=== PATIENT | female | born 1955 | race Caucasian/White ===

== ENCOUNTER 2019-03-07 18:14 | Emergency (ER) | payer OTHER ==
[~2019-03-07] VITALS: Ht 157.5 cm; Wt 88.0 kg
[2019-03-07 18:30] VITALS: Ht 157.5 cm; Wt 88.0 kg
[2019-03-07 20:32] LABS: BASOPHIL % 0.6 % (0-2); PLATELET COUNT 214 x10^3mcL (130-400); RED CELL DISTRIBUTION WIDTH 12.6 % (11.5-14.5)
[2019-03-07 20:40] LABS: CALCIUM 9.1 mg/dL (8.5-10.1); POTASSIUM SERUM 3.1 mmol/L (3.5-5.1)
[2019-03-07 20:44] LABS: BILIRUBIN TOTAL 1.1 mg/dL (0.20-1.00); MAGNESIUM 2.2 mg/dL (1.8-2.4); TOTAL PROTEIN, SERUM 8.1 g/dL (6.4-8.2)
[2019-03-07 22:23] VITALS: BP 134/69
== END 2019-03-07 22:23 | disposition home or self-care (01) ==
LOC: ED 18:14
PROVIDERS: Emergency Medicine
DX: E86.0 Dehydration (principal); E87.6 Hypokalemia; R42 Dizziness and giddiness; I10 Essential (primary) hypertension; E11.9 Type 2 diabetes mellitus without complications; E78.00 Pure hypercholesterolemia, unspecified; Z88.5 Allergy status to narcotic agent
CPT/HCPCS: 36415; Q0092

== ENCOUNTER 2020-06-09 11:44 | Emergency (ER) | payer OTHER ==
[~2020-06-09] VITALS: Ht 157.5 cm; Wt 88.9 kg
[2020-06-09 11:52] VITALS: Ht 157.5 cm; Wt 88.9 kg
[2020-06-09 12:21] LABS: BASOPHIL % 0.7 % (0.2-1.3); PLATELET COUNT 215 x10^3mcL (179-408); RED CELL DISTRIBUTION WIDTH 12.8 % (12.3-17.7)
[2020-06-09 12:29] LABS: CALCIUM 9.3 mg/dL (8.5-10.1); CARBON DIOXIDE 30.7 mmol/L (21-32); CHLORIDE SERUM 102 mmol/L (98-107); CREATININE SERUM 0.9 mg/dL (0.6-1.0); GFR1 > 60 mL/min; GLUCOSE SERUM 101 mg/dL (74-106); POTASSIUM SERUM 3.9 mmol/L (3.5-5.1); SODIUM SERUM 139 mmol/L (136-145)
[2020-06-09 12:34] LABS: ALBUMIN 3.8 g/dL (3.4-5.0); ALKALINE PHOSPHATASE 61 U/L (46-116); ALT/SGPT 55 U/L (14-59); AST/SGOT 22 U/L (15-37); BILIRUBIN TOTAL 0.7 mg/dL (0.20-1.00); TOTAL PROTEIN, SERUM 7.5 g/dL (6.4-8.2)
[2020-06-09 12:43] LABS: T3 TOTAL 1.29 ng/mL
[2020-06-09 13:05] LABS: FREE T4 1.09 ng/dL (0.76-1.46)
[2020-06-09 13:57] VITALS: BP 122/81
== END 2020-06-09 13:57 | disposition home or self-care (01) ==
LOC: ED 11:44
PROVIDERS: Emergency Medicine
DX: F43.9 Reaction to severe stress, unspecified (principal); I10 Essential (primary) hypertension; E78.00 Pure hypercholesterolemia, unspecified
CPT/HCPCS: 84439

== ENCOUNTER 2020-06-11 13:18 | Emergency (ER) | payer OTHER ==
[~2020-06-11] VITALS: Ht 157.5 cm; Wt 89.4 kg
[2020-06-11 13:23] VITALS: Ht 157.5 cm; Wt 89.4 kg
[2020-06-11 14:28] VITALS: BP 139/79
== END 2020-06-11 14:28 | disposition home or self-care (01) ==
LOC: ED 13:18
DX: R42 Dizziness and giddiness (principal); F10.20 Alcohol dependence, uncomplicated; I10 Essential (primary) hypertension; E78.00 Pure hypercholesterolemia, unspecified; Z88.5 Allergy status to narcotic agent; Y90.9 Presence of alcohol in blood, level not specified